=== PATIENT | male | born 1955 | race Caucasian/White ===

== ENCOUNTER 2017-08-18 07:48 | Day surgery (SDC) | payer OTHER ==
[~2017-08-18 07:48] MED LIST: RINGER'S SOLUTION,LACTATED 1,000 ML IV PRN
[2017-08-18] MEDS ORDERED: RINGER'S SOLUTION,LACTATED 1,000 ML IV ONE (08:18)
[2017-08-18 11:00] VITALS: BP 116/65
--- NOTE | 2017-08-18 20:54 | OR ---
Operative Report - Dictated Report Narrative: OPERATIVE REPORT DATE OF OPERATION: 08/18/2017 PREOPERATIVE DIAGNOSIS: Family history of colon cancer. Previous history of adenomatous polyps in 2007 and 2010 POSTOPERATIVE DIAGNOSIS: 4 millimeter polyp at 40 cm (pathology pending. OPERATION: Colonoscopy with hot biopsy forceps polypectomy at 40 cm SURGEON: Parviz Suarez MD ANESTHESIA: XIN Aceves CRNA INDICATIONS FOR PROCEDURE: The patient is a 61-year-old male referred by Dr. Harmon. The patient has had polyps on 2 previous colonoscopies in 2007 and 2010. There was a tubular adenoma in the right colon in 2007 and a polyp at 50 cm was snared but could not be retrieved in 2010. He has a very tortuous colon and a difficult exam was described on previous reports. His sister had colon cancer at age 58 FINDINGS: Very tortuous and capacious colon. 4 mm polyp at 40 cm (pathology pending) NARRATIVE OF PROCEDURE: The patient was identified in the holding area, and prior to the administration of anesthetic, a multidisciplinary timeout was observed. With the patient in the left lateral position and after the administration of intravenous sedation, the perineum was inspected. There was no evidence of pilonidal disease or skin breakdown. The external appearance of the anus was normal. Sphincter tone was good. The flexible fiberoptic colonoscope was inserted into the rectum which was insufflated with air. The rectal mucosa and submucosal vascular pattern appeared normal, the prep was seen to be complete. The scope was advanced through the sigmoid colon, which was very tortuous and difficult to negotiate. The scope was advanced up the descending colon, and around the splenic flexure where the triangular haustral architecture of the transverse colon was seen. The scope was advanced across the transverse colon, and using standard reduction maneuvers, around the hepatic flexure to the cecum, where the confluence of tenia and the ileocecal valve were identified. The mucosa at this level appeared normal. The scope was then slowly withdrawn in a circular fashion so that all aspects of colonic mucosa were inspected. The proximal colon was very capacious in character. The sigmoid colon was redundant and tortuous. The haustral architecture however appeared well preserved throughout with no evidence of external compression. The mucosa and submucosal vascular pattern appeared normal, specifically there was no gross evidence to suggest colitis or inflammatory bowel disease and no AV malformations were seen. No rochelle diverticulosis was demonstrated. A 4 mm polyp was encountered at 40 cm. The polyp was biopsied with hot biopsy forceps and then thoroughly destroyed with electrocautery. The site was seen to be complete and hemostatic The scope was gradually withdrawn to the level of the rectum. As much insufflated air as possible was removed. The scope was withdrawn from the patient and the procedure terminated. The patient tolerated the anesthetic and procedure well without complication and was transferred back to the ambulatory surgery area awake and in stable condition. The patient remained stable throughout a period of postoperative observation. He denied abdominal discomfort, was able to tolerate by mouth intake, and was up without assistance. I shared the operative findings with the patient and he was given copies of the photographs which appear in the medical record. He was discharged home with instructions not to engage in hazardous activity today, but may resume normal activity tomorrow, and advance diet as tolerated. He is to continue those medications as listed in the history and physical exam. I made arrangements to contact him with the biopsy reports and will make additional recommendations for treatment and follow-up based upon those results. Reviewed and electronically signed
[2017-08-20] MEDS ORDERED: RINGER'S SOLUTION,LACTATED 1,000 ML IV PRN (10:18)
== END 2017-08-18 07:49 | disposition home or self-care (01) ==
LOC: AMB 07:48
PROVIDERS: ATTEND Surgery
PROC: 0DBE8ZX Excision of Large Intestine, Via Natural or Artificial Opening Endoscopic, Diagnostic (ICD-10-PCS; principal; 2017-08-18)